=== PATIENT | female | born 1980 | race African-American/Black ===

== ENCOUNTER 2017-03-10 14:45 | Emergency (ER) | payer SELFPAY, OTHER | END 2017-03-10 18:50 | disposition home or self-care (01) | LOC: ERS 14:45 | DX: R21 Rash and other nonspecific skin eruption (principal); E11.9 Type 2 diabetes mellitus without complications | CPT/HCPCS: 99282 ==

== ENCOUNTER 2018-12-08 05:51 | Day surgery (SDC) | payer OTHER ==
[2018-12-07 11:26] VITALS: BMI 32.0
--- NOTE | 2018-12-07 12:17 | HP ---
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 She has symptomatic cholelithiasis with biliary symptoms for the past two years, worsening. Ultrasound performed 11/02/2018, reveals gallstones, normal bile duct caliber, sonographic negative Jessica. Plan is for laparoscopic video cholecystectomy. She understands the risks of infection, bleeding, visceral and biliary injury, and consents. Questions answered. MEDICATIONS: Metformin 500 mg twice a day. ALLERGIES: NONE. TOBACCO: None. ALCOHOL: None. REVIEW OF SYSTEMS: Ten-point noncontributory. FAMILY HISTORY: Noncontributory. PHYSICAL EXAMINATION: VITAL SIGNS: 172 pounds, 4 foot 11 inches, 35.8 BMI, 120/77, 103, 98 degrees. HEAD, EARS, EYES, NOSE, AND THROAT: Unremarkable. LUNGS: Clear to auscultation. CARDIAC: Rhythm without murmur or gallop. ABDOMEN: Soft. Mild tenderness in right upper quadrant. Mild guarding. EXTREMITIES: Unremarkable. Sclerae nonicteric. SKIN: Jaundiced. No lymphadenopathy of neck, axillary, or groins. NEUROLOGICAL: Intact. No focal deficits. ASSESSMENT AND PLAN: Cholecystitis, cholelithiasis. We would recommend laparoscopic video cholecystectomy. Risks and benefits discussed as described above. Questions have been answered. Job ID: [id number]
[2018-12-08] MEDS ORDERED: Bupivacaine HCl 0.5%/Epinephrine 1:200,000/PF 30 ml Vial ONE (06:38)
[2018-12-08] MEDS ORDERED: Fentanyl 100 MCG/2 ML VIAL ONE ×2 (06:50→08:11)
[2018-12-08] MEDS ORDERED: Scopolamine 1.5 mg/72 hour Patch ONE (06:52)
[2018-12-08] MEDS ORDERED: Ketorolac Tromethamine 30 MG/ML VIAL ONE (06:52)
[2018-12-08] MEDS ORDERED: ceFAZolin Sodium (SDC) 2 GM/100 ML BAG ONE (06:52)
[2018-12-08 07:04] LABS: #Basophils 0.1 thou/uL (0.0-0.2); #Eosinphils 0.5 thou/uL (0.0-0.7); #Lymphocytes 2.9 thou/uL (1.20-3.40); #Monocytes 0.6 thou/uL (0.11-0.59); #Neutrophils 4.3 thou/uL (1.40-6.50); %Basophils 0.8 % (0.0-1.0); %Eosinophils 6.3 % (0.0-10.0); %Lymphocytes 34.3 % (21.0-51.0); %Monocytes 7.4 % (0.0-10.0); %Neutrophils 51.2 % (42.0-75.0); Hemoglobin 12.2 g/dL (12.0-16.0); Mean Corpuscular HGB CONC 34.9 g/dL (32.0-36.0); Mean Corpuscular Volume 86.1 fL (78.0-98.0); Platelet Count 378 thou/uL (130-400); RBC Distribution Width 11.4 % (11.5-14.5); Red Blood Cell (RBC) Count 4.05 mill/uL (4.20-5.40); White Blood Cell (WBC) Count 8.5 thou/uL (4.8-10.8)
[2018-12-08 07:26] LABS: ALT (SGPT) 10 U/L (8-55); AST (SGOT) 8 U/L (5-34); Albumin 3.6 g/dL (3.5-5.0); Alkaline Phosphatase 131 U/L (40-150); Anion Gap 12 mmol/L (10-20); BUN (Urea Nitrogen) 16 mg/dL (7.0-18.7); Bilirubin, Total 1.2 mg/dL (0.2-1.2); Calc. Creatinine Clearance 126 mL/min (70-130); Calcium 8.9 mg/dL (7.8-10.44); Carbon Dioxide 22 mmol/L (22-29); Chloride 105 mmol/L (98-107); Estimated GFR-MDRD Greater than 90; Globulin 3.4 g/dL (2.4-3.5); Glucose 322 mg/dL (70-105); Potassium 3.7 mmol/L (3.5-5.1); Sodium 135 mmol/L (136-145)
--- NOTE | 2018-12-08 08:37 | OP ---
DATE OF PROCEDURE: 12/08/2018 PREOPERATIVE DIAGNOSES: Chronic cholecystitis, cholelithiasis. POSTOPERATIVE DIAGNOSIS: Chronic cholecystitis, cholelithiasis. PROCEDURE PERFORMED: Laparoscopic video cholecystectomy. ANESTHESIA: General, local 0.5% Marcaine with epinephrine, 30 mL total used. PROCEDURE PERFORMED: Laparoscopic video cholecystectomy. DESCRIPTION OF PROCEDURE: The patient was taken to the operating room, where under general anesthesia, abdomen was prepared with ChloraPrep and draped in routine fashion. Local anesthetic was infiltrated in the skin and subcutaneous tissue about each port site. Midclavicular incision was made, subcostal right, and pneumoperitoneum to 15 mmHg was obtained with a Veress needle, replaced with a 5 port, video laparoscope inserted. Periumbilical area was free of adhesions as the infraumbilical incision was made through an old scar and a 5 port placed through the laparoscope, moved to this port. Right subxiphoid incision was made and 11 port placed. Right lateral subcostal incision was made and the 5 port placed. Liver appeared to be normal. Gallbladder had several stones. Fundus grasped at the cephalad. Infundibulum was grasped and reflected laterally. Cystic artery and duct dissected free. Critical view obtained. Cystic artery and duct doubly clipped proximally, divided and gallbladder dissected free from liver bed obtaining good hemostasis prior to division of the final peritoneal attachments. Gallbladder and contents removed, submitted to Pathology. Good hemostasis ensured with the cautery. Irrigant and pneumoperitoneum evacuated. All instruments were removed. All skin incisions were approximated with subdermal 4-0 Monocryl and Wye glue applied. Job ID: [id number]
[2018-12-08] MEDS ORDERED: HYDROcodone/Acetaminophen 5/325 mg Tablet ONE (09:19)
== END 2018-12-08 10:20 | disposition home or self-care (01) ==
LOC: SDC 05:51
PROVIDERS: ATTEND Specialist
PROC: 0FT44ZZ Resection of Gallbladder, Percutaneous Endoscopic Approach (ICD-10-PCS; principal; 2018-12-08)
DX: K80.10 Calculus of gallbladder with chronic cholecystitis without obstruction (principal); Z79.84 Long term (current) use of oral hypoglycemic drugs
CPT/HCPCS: 80053; 85025; 88304; J0131; J0670; J0690; J1885; J3010

== ENCOUNTER 2019-01-04 14:23 | Outpatient (CLI) | payer OTHER ==
--- NOTE | 2019-01-04 15:07 | RAD ---
TWO VIEW ABDOMEN: 01/04/19 INDICATIONS: Cholecystectomy 12/08/18. Abdominal pain with vomiting. Bowel gas pattern unremarkable. Scattered stool and gas in the colon. No evidence of free intraperit gupta air on the upright view. Post cholecystectomy clips. No soft tissue mass or abnormal calcificat ion. IMPRESSION: Unremarkable bowel gas pattern. POS: [facility]
== END 2019-01-04 14:24 | disposition home or self-care (01) ==
LOC: BICRAD 14:23
PROVIDERS: ATTEND Specialist
DX: Z48.815 Encounter for surgical aftercare following surgery on the digestive system (principal); Z90.49 Acquired absence of other specified parts of digestive tract
CPT/HCPCS: 74019